=== PATIENT | female | born 1935 | race Caucasian/White ===

== ENCOUNTER → 2021-11-06 | Emergency (ER) | payer MEDICARE, OTHER ==
[~2021-11-06] VITALS: Ht 144.8 cm; Wt 54.4 kg
[~2021-11-06] MED LIST: HYDROMORPHONE HCL 2 MG TABLET ONE; HYDROMORPHONE HCL 2 MG TABLET PO PRN
[2021-11-06 19:44] VITALS: BP 149/80
--- NOTE | 2021-11-06 19:48 | NUR ---
PARK C/O RIGHT KNEE PAIN STARTED AT 3PM, TOOK NORCO 10, NO RELIEF, Hx: CHRONIC NERVE PAIN AND BACK PAIN. PATIENT IS A/O X 4, RR EVEN AND UNLABORED, NO SOB NOTED. PATIENT CONNECTED TO MONITORS. NO ACUTE DISTRESS NOTED.
--- NOTE | 2021-11-06 21:51 | NUR ---
Patient discharged to home in stable condition. Written and verbal after care instructions given. Patient verbalizes understanding of instruction.
== END | disposition home or self-care (01) ==
LOC: ER 19:34
DX: M25.561 Pain in right knee (principal); G89.29 Other chronic pain; I10 Essential (primary) hypertension

== ENCOUNTER 2021-11-27 21:12 | Inpatient (IN) | payer MEDICARE, OTHER ==
[~2021-11-27] VITALS: Ht 152.4 cm; Wt 51.7 kg
--- NOTE | 2021-11-27 21:30 | NUR ---
BIB GRAND DAUGHTER FOR C/O LIGHTHEADEDNESS STARTED W/ N/V 2 DAYS AGO AND HALLUCINATIONS YESTERDAY. HX CVA WITH R SIDE DEFECIT. PT AWAKE AND ALERT X4 BREATHING EVEN AND UNLABORED. PLACED ON MONITOR AND ALL V/S STABLE.
[2021-11-27 22:50] LABS: BASOPHILS % (AUTO) 0.4 % (0.0-2.0); EOSINOPHILS % (AUTO) 1.3 % (0.0-6.0); HEMATOCRIT 38 % (33-45); HEMOGLOBIN 12.7 g/dL (11.5-14.8); MEAN CORPUSCULAR HGB CONC 33 g/dl (31.0-36.0); MEAN CORPUSCULAR VOLUME 89 fL (82-100); NEUTROPHILS # (AUTO) 5.6 K/uL (1.8-8.9); NEUTROPHILS % (AUTO) 64.3 % (43.0-81.0); PLATELET COUNT (AUTO) 248 K/uL (150-450); RED BLOOD CELL COUNT(AUTO) 4.26 MIL/uL (4.0-5.2); WHITE BLOOD COUNT (AUTO) 8.6 K/uL (4.3-11.0)
--- NOTE | 2021-11-27 22:52 | NUR ---
PT BEING TRANSPORTED TO CT SCAN
--- NOTE | 2021-11-27 23:07 | NUR ---
pt unable to provide urine sample. does not wish for a urinary catheter at this time.
[2021-11-27 23:17] LABS: ALANINE AMINOTRANSFERASE 26 U/L (12-78); ALBUMIN 3.4 g/dL (3.4-5.0); ALKALINE PHOSPHATASE 546 U/L (46-116); ASPARTATE AMINOTRANSFERASE 44 U/L (15-37); BILIRUBIN,DIRECT 0.1 mg/dL (0.0-0.2); BILIRUBIN,TOTAL 0.4 mg/dL (0.2-1.0); CALCIUM, SERUM 9.6 mg/dL (8.5-10.1); CARBON DIOXIDE 31 mmol/L (21-32); CHLORIDE 99 mmol/L (98-107); CREATININE 1.5 mg/dL (0.6-1.3); GLUCOSE 168 mg/dL (74-106); POTASSIUM 3.6 mmol/L (3.5-5.1); SODIUM SERUM 138 mmol/L (136-145); TOTAL PROTEIN, SERUM 7.4 g/dL (6.4-8.2); UREA NITROGEN, BLOOD 42 mg/dL (7-18)
--- NOTE | 2021-11-28 00:08 | NUR ---
URINE COLLECTED AND SENT TO LAB
[2021-11-28 00:43] LABS: BILIRUBIN,URINE NEGATIVE (NEGATIVE); COLOR,URINE YELLOW (YELLOW); LEUKOCYTE ESTERASE ,URINE TRACE (NEGATIVE); NITRITE, URINE NEGATIVE (NEGATIVE); PH,URINE 5.5 (5.0-8.0); PROTEIN,URINE NEGATIVE (NEGATIVE); UGLUCOSE NEGATIVE (NEGATIVE); UROBILINOGEN,URINE 0.2 EU/dL (0.2)
[2021-11-28 00:50] LABS: BACTERIA,URINE Many /HPF (None Seen); RBC,URINE 0-2 /HPF (0-2); SQUAMOUS EPITHELIAL CELL,UR Few /HPF (None Seen)
--- NOTE | 2021-11-28 01:02 | NUR ---
GRAND DAUGHTER, SRIDEVI/ MAKI: HOME: [phone], CELL: [phone]
[2021-11-28] MEDS ORDERED: MAG HYDROX/AL HYDROX/SIMETH 30 ML UDC PO PRN (02:30)
[2021-11-28] MEDS ORDERED: CEFTRIAXONE 1 G in IV D5W 50 ML IV ONE (02:30)
[2021-11-28] MEDS ORDERED: IV NS 0.9% 1,000 ML IV ONE (02:30)
[2021-11-28] MEDS ORDERED: ACETAMINOPHEN 325 MG TABLET PO PRN (02:30)
[2021-11-28] MEDS ORDERED: MAGNESIUM HYDROXIDE 30 ML UDC PO PRN (02:30)
[2021-11-28] MEDS ORDERED: ZOLPIDEM TARTRATE 5 MG TABLET PO PRN (02:30)
[2021-11-28] MEDS ORDERED: ONDANSETRON HCL/PF 4 MG/2 ML VIAL IVP PRN (02:30)
[2021-11-28] MEDS ORDERED: Z GUARD REMEDY 4 OZ OINT TP PRN (02:30)
[2021-11-28] MEDS ORDERED: CEFTRIAXONE 1GM BAG (ER ONLY) 50 ML IV ONE (02:58)
--- NOTE | 2021-11-28 03:12 | NUR ---
REPORT GIVEN TO CHANTAL
[2021-11-28] MEDS ORDERED: AMLO-212 PO (03:23)
[2021-11-28] MEDS ORDERED: DEXL60CA3 PO (03:23)
[2021-11-28] MEDS ORDERED: FAMO40TA7 PO (03:23)
[2021-11-28] MEDS ORDERED: OLME1TAB19 PO (03:23)
[2021-11-28] MEDS ORDERED: HYDR-4279 PO (03:23)
[2021-11-28] MEDS ORDERED: TEMA30CA PO (03:23)
[2021-11-28] MEDS ORDERED: HYDR1LIQ PO (03:23)
[2021-11-28] MEDS ORDERED: CITA10SO3 PO (03:23)
[2021-11-28] MEDS ORDERED: CYCL5TAB PO (03:23)
[2021-11-28] MEDS ORDERED: GABA-532 PO (03:23)
[2021-11-28] MEDS ORDERED: SIME180C47 PO (03:23)
[2021-11-28 04:00] VITALS: BP 114/89
--- NOTE | 2021-11-28 04:01 | NUR ---
PT TRANSPORTED TO ROOM 308 ON HOSPICE BEREAVEMENT COORDINATOR PER ACLS PROTOCOL
[2021-11-28 04:54] VITALS: BP 114/89
--- NOTE | 2021-11-28 04:55 | NUR ---
COORDINATOR OF EVALUATION NOTES: RECEIVED PATIENT VIA GURNEY AWAKE, PATIENT IS A/OX3-4 ABLE TO MAKE NEEDS KNOWN, AMBULATORY WITH ASSISTANCE, PLACE ON BED COMFORTABLY ON BED, ORIENTED RO PLACE REMIND RESIDENT TO USE CALL LIGHTS WHEN NEEDED ASSISTANCE, ON ROOM AIR SATURATING WELL, NO SOB WAS OBSERVED, WITH IV LINE AT RFA#20 SL SKIN ASSESSMENT DONE SKIN IS INTACT, NO SKIN BREAKDOWN WAS OBSERVE, INVENTORY DONE AND SIGNED, V/S ARE TAKEN BP-114/89, HR-100, RR-20, TEMP98.1, O2 SAT 95%RA. PATIENT KEPT CLEAN AND DRY ALL NEEDS MET WILL CONTINUE TO MONITOR.
--- NOTE | 2021-11-28 06:30 | NUR ---
RN CLOSING NOTES: PATIENT SLEEP IN BED COMFORTABLY, BED IN LOW POSITION, CALL LIGHTS WITHIN REACH, NO COMPLAIN OF PAIN AND DISCOMFORT PATIENT IS A/OX3-4 ABLE TO MAKE NEEDS KNOWN, AMBULATORY WITH SUPERVISION, WITH IV LINE AT RFA#22 WITH ONGOING NSS@100ML PER HOUR X1 BAG, PATIENT KEPT CLEAN AND DRY ALL NEEDS MET ENDORSE TO INCOMING SHIFT.
[2021-11-28] MEDS: HYDROCODONE/APAP 10/325MG TABLET PO PRN ×2 (07:04→14:26)
[2021-11-28 08:00] VITALS: BP 140/70
--- NOTE | 2021-11-28 08:01 | NUR ---
RN OPENING NOTE PATIENT IN BED RESTING AWAKE, A/O X4. NO S/S OF PAIN NOTED AT THIS TIME. ON ROOM AIR, NO DISTRESS OR SHORTNESS OF BREATH NOTED. IV ACCESS RFA #20G, INTACT, PATENT AND FLUSHING WELL. FALL AND SAFETY MEASURES IN PLACE, BED ALARM ON. BED IN LOW AND LOCK POSITION, CALL LIGHT AND TABLE WITHIN EASY REACH, SIDE RAILS UP X2. WILL CONTINUE TO MONITOR.
[2021-11-28] MEDS: GABAPENTIN 300 MG CAPSULE PO SCH ×3 (08:41→17:02)
[2021-11-28] MEDS: SIMETHICONE 80 MG TAB.CHEW PO SCH ×3 (08:41→17:02)
[2021-11-28] MEDS: CYCLOBENZAPRINE 10 MG TABLET PO SCH (08:41)
[2021-11-28] MEDS: LOSARTAN POTASSIUM 50 MG TABLET PO SCH (08:42)
[2021-11-28] MEDS: AMLODIPINE BESYLATE 5 MG TABLET PO SCH (08:43)
[2021-11-28] MEDS: HYDROCHLOROTHIAZIDE 25 MG TABLET PO SCH (08:44)
[2021-11-28] MEDS: CITALOPRAM HYDROBROMIDE 20 MG TABLET PO SCH (09:00)
[2021-11-28] MEDS ORDERED: Medication Not On Formulary EA (Dexlansoprazole (Dexilant) 1 CAP) PO SCH (09:00)
[2021-11-28] MEDS ORDERED: BISACODYL SUPP (10 MG) 10 MG/SUPP.RECT SUPP.RECT RC PRN (11:30)
[2021-11-28] MEDS ORDERED: SENNOSIDES/DOCUSATE SODIUM 1 TAB TABLET PO PRN (11:30)
[2021-11-28] MEDS: DOCUSATE SODIUM 100 MG CAPSULE PO SCH (12:18)
[2021-11-28 14:35] VITALS: BP_SYST 131; BP_SYST 142; BP_SYST 147; BP_DIAS 77; BP_DIAS 78; BP_DIAS 82
[2021-11-28 16:00] VITALS: BP 154/82
--- NOTE | 2021-11-28 18:54 | NUR ---
RN CLOSING NOTE PATIENT IN BED RESTING AWAKE, A/O X4. NO S/S OF PAIN NOTED AT THIS TIME. ON ROOM AIR, NO DISTRESS OR SHORTNESS OF BREATH NOTED. IV ACCESS RFA #20G, INTACT, PATENT AND FLUSHING WELL. ALL SCHEDULE MEDICATIONS ADMINISTERED. FALL AND SAFETY MEASURES IN PLACE, BED ALARM ON. BED IN LOW AND LOCK POSITION, CALL LIGHT AND TABLE WITHIN EASY REACH, SIDE RAILS UP X2. WILL ENDORSE TO MARKETING LEAD.
--- NOTE | 2021-11-28 19:30 | NUR ---
MS RN OPENING NOTE RECEIVED PATIENT IN BED AWAKE. A/O X4. PT STABLE ON ROOM AIR. NO SOB OR S/S OR RESPIRATORY DISTRESS NOTED. IV ACCESS RFA 20 GAUGE, INTACT AND PATENT. SAFETY PRECAUTIONS IN PLACE. BEDE IN LOWEST LOCKED POSITION, HOB ELEVATED, SIDE RAILS UP X2, AND CALL LIGHT AND TABLE WITHIN REACH. WILL CONTINUE WITH PLAN OF CARE.
[2021-11-28 20:00] VITALS: BP 135/69
[2021-11-28] MEDS ORDERED: TEMAZEPAM 15 MG CAPSULE PO SCH (22:00)
[2021-11-28] MEDS ORDERED: FAMOTIDINE (20 MG) 20 MG TABLET PO SCH (22:00)
[2021-11-29] MEDS: HYDROCODONE/APAP 10/325MG TABLET PO PRN ×3 (01:53→13:47)
--- NOTE | 2021-11-29 01:53 | NUR ---
RN NOTE PT COMPLAINED OF GENERALIZED BODY PAIN 03/10. ADMINISTERED NORCO 10-325 MG FOR MODERATE PAIN ORDERED. WILL CONTINUE WITH PLAN OF CARE.
[2021-11-29] MEDS ORDERED: CEFTRIAXONE 1 G in IV D5W 50 ML IV SCH (03:00)
--- NOTE | 2021-11-29 06:32 | NUR ---
MS RN CLOSING NOTE PATIENT IN BED AWAKE. A/O X4. PT STABLE ON ROOM AIR. NO SOB OR S/S OR RESPIRATORY DISTRESS NOTED. IV ACCESS RFA 20 GAUGE, INTACT AND PATENT. ALL NEEDS MET AT THIS TIME. ALL DUE MEDS GIVEN ORDERED. SAFETY PRECAUTIONS IN PLACE AT ALL TIMES. BED IN LOWEST LOCKED POSITION, HOB ELEVATED, SIDE RAILS UP X2, AND CALL LIGHT AND TABLE WITHIN REACH. WILL ENDORSE TO ONCOMING SHIFT FOR YUE.
[2021-11-29 06:50] LABS: CALCIUM, SERUM 9.1 mg/dL (8.5-10.1); CREATININE 0.8 mg/dL (0.6-1.3); MAGNESIUM 2.2 mg/dL (1.8-2.4); PHOSPHORUS 3.1 mg/dL (2.5-4.9); POTASSIUM 3.4 mmol/L (3.5-5.1)
[2021-11-29 07:26] LABS: BASOPHILS % (AUTO) 0.4 % (0.0-2.0); HEMATOCRIT 37 % (33-45); HEMOGLOBIN 12.2 g/dL (11.5-14.8); MEAN CORPUSCULAR HGB CONC 33 g/dl (31.0-36.0); MEAN CORPUSCULAR VOLUME 89 fL (82-100); MONOCYTES # (AUTO) 0.9 K/uL (0.1-1.30); MONOCYTES % (AUTO) 11.9 % (2.0-12.0); NEUTROPHILS # (AUTO) 4.7 K/uL (1.8-8.9); NEUTROPHILS % (AUTO) 59.7 % (43.0-81.0); PLATELET COUNT (AUTO) 280 K/uL (150-450); RED BLOOD CELL COUNT(AUTO) 4.13 MIL/uL (4.0-5.2); WHITE BLOOD COUNT (AUTO) 7.8 K/uL (4.3-11.0)
[2021-11-29] MEDS ORDERED: PANTOPRAZOLE 40 MG TABLET.DR PO SCH (07:30)
[2021-11-29 08:00] VITALS: BP 156/89
[2021-11-29] MEDS: DOCUSATE SODIUM 100 MG CAPSULE PO SCH (08:09)
[2021-11-29] MEDS: SIMETHICONE 80 MG TAB.CHEW PO SCH ×3 (08:09→17:19)
[2021-11-29] MEDS: GABAPENTIN 300 MG CAPSULE PO SCH ×3 (08:09→17:19)
[2021-11-29] MEDS: AMLODIPINE BESYLATE 5 MG TABLET PO SCH (08:10)
[2021-11-29] MEDS: CYCLOBENZAPRINE 10 MG TABLET PO SCH (08:11)
[2021-11-29] MEDS: HYDROCHLOROTHIAZIDE 25 MG TABLET PO SCH (08:12)
[2021-11-29] MEDS: LOSARTAN POTASSIUM 50 MG TABLET PO SCH (08:13)
[2021-11-29] MEDS: CITALOPRAM HYDROBROMIDE 20 MG TABLET PO SCH (08:18)
--- NOTE | 2021-11-29 08:22 | NUR ---
RN OPENING NOTE PATIENT RECEIVED IN BED, AO X 3-4 FORGETFUL, ABLE TO RESPONDS PHYSICAL STIMULI. IN NO ACUTE DISTRESS NOTED. RESPIRATORY EVEN AND UNLABORED ON ROOM AIR. SKIN IS WARM TO TOUCH, KEEP CLEAN/DRY, INTACT IV SITE. KEPT ELEVATED HOB FOR ENSURE AIRWAY AND ASPIRATION PRECAUTION, ALSO LOWEST POSITION OF THE BED, BED ALARM IS ON AT ALL THE TIMES, S/R UP X 3 FOR SAFETY. ALL SAFETY PRECAUTION APPLIED. CALL LIGHT WITHIN REACH, WILL CONTINUE TO MONITOR.
[2021-11-29] MEDS ORDERED: POTASSIUM CHLORIDE 20 MEQ TAB.PRT.SR PO SCH (11:00)
[2021-11-29 16:00] VITALS: BP 167/97
[2021-11-29] MEDS ORDERED: CEPH750C9 PO (17:09)
[2021-11-29] MEDS ORDERED: AZIT1PAC9 PO (17:09)
--- NOTE | 2021-11-29 18:16 | NUR ---
PATIENT DISCHARGE TO HOME AND GIVEN DISCHARGE INSTRUCTIONS INCLUDE BLOCK FEEDER NEW MEDICATIONS. PATIENT LEFT FACILITY COMPANIED BY STAFF TO THE PRIVATE CAR, IN STABLE CONDITION. FAMILY MEMBER SINGED ON BELONGINGS.
== END 2021-11-29 18:16 | disposition home health service (06) | DRG 193 ==
LOC: ER 21:16 → TELE 11-28 03:02 → MED 11-28 03:27
PROVIDERS: ADMIT Registered Nurse; ATTEND Registered Nurse
DX: J15.9 Unspecified bacterial pneumonia (principal); N17.0 Acute kidney failure with tubular necrosis; G92.8 Other toxic encephalopathy; N39.0 Urinary tract infection, site not specified; Z86.73 Personal history of transient ischemic attack (TIA), and cerebral infarction without residual deficits; Z85.41 Personal history of malignant neoplasm of cervix uteri; I10 Essential (primary) hypertension; Z20.822 Contact with and (suspected) exposure to COVID-19; K44.9 Diaphragmatic hernia without obstruction or gangrene; Z87.19 Personal history of other diseases of the digestive system; Z87.81 Personal history of (healed) traumatic fracture; B96.89 Other specified bacterial agents as the cause of diseases classified elsewhere; R26.9 Unspecified abnormalities of gait and mobility
CPT/HCPCS: 36415; 70450-TC; 71045-TC; 80048-TC; 80076-TC; 81001; 83605-TC; 83735-TC; 84100-TC; 84484-TC; 85025-TC; 87040-TC; 87081-TC; 87086-TC; 87186-TC; 93307-TC; 97116-TC; 97530-TC; C9803; G0378; J0696; J7030; J7060

== ENCOUNTER 2022-01-17 18:35 | Emergency (ER) | payer MEDICARE, OTHER ==
[~2022-01-17] VITALS: Ht 152.4 cm; Wt 53.1 kg
[~2022-01-17 18:35] MED LIST changes: +AMLO-212 PO; +AZIT1PAC9 PO; +CEPH750C9 PO; +CITA10SO3 PO; +CYCL5TAB PO; +DEXL60CA3 PO; +FAMO40TA7 PO; +GABA-532 PO; +HYDR-4279 PO; -HYDROMORPHONE HCL 2 MG TABLET ONE; -HYDROMORPHONE HCL 2 MG TABLET PO PRN; +OLME1TAB19 PO; +SIME180C47 PO; +TEMA30CA PO
[2022-01-17 19:54] LABS: SERUM AMMONIA 2 umol/L (11-32)
[2022-01-17 19:58] LABS: ALANINE AMINOTRANSFERASE 29 U/L (12-78); ALBUMIN 2.7 g/dL (3.4-5.0); ALCOHOL, BLOOD < 3 mg/dL (0-0); ALKALINE PHOSPHATASE 633 U/L (46-116); ASPARTATE AMINOTRANSFERASE 51 U/L (15-37); BILIRUBIN,DIRECT 0.2 mg/dL (0.0-0.2); BILIRUBIN,TOTAL 0.5 mg/dL (0.2-1.0); CALCIUM, SERUM 8.3 mg/dL (8.5-10.1); CARBON DIOXIDE 27 mmol/L (21-32); CHLORIDE 98 mmol/L (98-107); GLUCOSE 204 mg/dL (74-106); POTASSIUM 3.6 mmol/L (3.5-5.1); SODIUM SERUM 133 mmol/L (136-145); UREA NITROGEN, BLOOD 26 mg/dL (7-18)
[2022-01-17 20:00] VITALS: BP 119/70
[2022-01-17 20:07] LABS: BASOPHILS % (AUTO) 0.1 % (0.0-2.0); EOSINOPHILS % (AUTO) 0.2 % (0.0-6.0); HEMATOCRIT 36 % (33-45); HEMOGLOBIN 11.6 g/dL (11.5-14.8); LYMPHOCYTES # (AUTO) 1.1 K/uL (0.8-4.8); LYMPHOCYTES % (AUTO) 9.3 % (20.0-44.0); MEAN CORPUSCULAR HGB CONC 32 g/dl (31.0-36.0); MEAN CORPUSCULAR VOLUME 91 fL (82-100); MONOCYTES # (AUTO) 1.3 K/uL (0.1-1.30); MONOCYTES % (AUTO) 10.5 % (2.0-12.0); NEUTROPHILS # (AUTO) 9.8 K/uL (1.8-8.9); NEUTROPHILS % (AUTO) 79.9 % (43.0-81.0); PLATELET COUNT (AUTO) 294 K/uL (150-450); RED BLOOD CELL COUNT(AUTO) 3.97 MIL/uL (4.0-5.2); WHITE BLOOD COUNT (AUTO) 12.2 K/uL (4.3-11.0)
[2022-01-17 20:28] LABS: TOTAL PROTEIN, SERUM 6.7 g/dL (6.4-8.2)
[2022-01-17] MEDS ORDERED: LEVO750T46 PO (20:30)
--- NOTE | 2022-01-17 20:41 | NUR ---
IV removed. Catheter intact and site benign. Pressure and 4x4 applied to site. No bleeding noted.Patient discharged to home in stable condition. Written and verbal after care instructions given. Patient verbalizes understanding of instruction.
[2022-01-17 21:00] LABS: THYROID STIMULATING HORMONE 0.601 uIU/mL (0.358-3.74)
== END 2022-01-17 20:50 | disposition home or self-care (01) ==
LOC: ER 18:43
DX: J18.1 Lobar pneumonia, unspecified organism (principal); I10 Essential (primary) hypertension; Z87.19 Personal history of other diseases of the digestive system; Z87.39 Personal history of other diseases of the musculoskeletal system and connective tissue; Z79.899 Other long term (current) drug therapy
CPT/HCPCS: 36415; 70450-TC; 71045-TC; 72125-TC; 80048-TC; 80076-TC; 82140-TC; 84443-TC; 84484-TC; 85025-TC; 85730-TC; G0480